=== PATIENT | female | born 1935 | race Caucasian/White ===

== ENCOUNTER 2023-06-11 04:35 | Inpatient (IN) | payer MEDICARE, BC ==
[~2023-06-11] VITALS: Ht 160 cm; Wt 61.3 kg
[2023-06-11] VITALS (13 sets, daily range): BP systolic 90–154; BP diastolic 49–93; PULSE 77–124; TEMP 96.7
[2023-06-11] MEDS ORDERED: ceFAZolin 2 G IV PRN (05:00)
[2023-06-11] MEDS ORDERED: Morphine 4 MG/ML VIAL IV PRN ×2 (05:00→17:15)
[2023-06-11] MEDS ORDERED: D5 1/2 NS 1,000 ML IV SCH (05:00)
[2023-06-11] MEDS ORDERED: Naloxone 0.4 MG/ML VIAL IV PRN ×2 (05:00→17:15)
[2023-06-11] MEDS ORDERED: traMADol 50 MG TAB PO PRN (05:00)
[2023-06-11] MEDS ORDERED: Promethazine 25 MG TAB PO PRN (05:15)
[2023-06-11] MEDS ORDERED: Promethazine 25 MG in NS 50 ML IV PRN (05:15)
--- NOTE | 2023-06-11 05:40 | NUR ---
Accepted in transfer from [facility]. Arrived via EMS.
[2023-06-11] MEDS ORDERED: EUTHYROX100 MCG PO (06:10)
[2023-06-11] MEDS ORDERED: COZAAR100 MG PO (06:11)
[2023-06-11] MEDS ORDERED: COREG 25MG25 MG/TAB PO (06:12)
[2023-06-11] MEDS ORDERED: PEPCID40 MG PO (06:12)
[2023-06-11] MEDS ORDERED: MELATIN 3 MG-11 TAB PO (06:12)
[2023-06-11] MEDS ORDERED: LASIX 40MG TABL40 MG PO (06:13)
[2023-06-11] MEDS ORDERED: LYRICA200 MG PO (06:13)
[2023-06-11] MEDS ORDERED: AZULFIDINE500 MG/TAB PO (06:15)
[2023-06-11] MEDS ORDERED: REQUIP3 MG PO (06:15)
[2023-06-11] MEDS ORDERED: ceFAZolin 2 G in Water For Injection,Sterile 20 ML IV PRN (06:15)
[2023-06-11] MEDS ORDERED: ASPIRIN 32325 MG/TAB PO (06:16)
[2023-06-11] MEDS ORDERED: CYMBALTA 60MG60 MG PO (06:16)
[2023-06-11] MEDS ORDERED: ANTACID500 M1 PO (06:21)
[2023-06-11] MEDS ORDERED: ANTACID 225 MG360 M1 PO (06:21)
[2023-06-11] MEDS ORDERED: LIQUIFILM TEARS15 ML OU (06:22)
[2023-06-11] MEDS ORDERED: IMODIUM A-D2 MG PO (06:35)
[2023-06-11] MEDS ORDERED: GERI-TUSSI100 MG/5 M PO (06:35)
[2023-06-11] MEDS ORDERED: NORCO 325 MG-51 TAB PO (06:36)
[2023-06-11] MEDS ORDERED: GOOD SENSE400 MG/5 M PO (06:36)
--- NOTE | 2023-06-11 06:45 | NUR ---
Pt recently arrived via EMS. Pt is confused and having complaints of pain to her right hip. Pt is very restless. She is confused, unable to answer questions appropriatley. Hospitalist aware that she is here per CAROLINE Gonzalez. Dr Sands just in to see pt. Pt does have Brant hose to left leg and SCDs on bilaterally. Placed pt on O2 at 2L per nc as she was on this coming via EMS. Report given to Hayde VELAZQUEZ
[2023-06-11 07:11] LABS: BASO % 0.1 % (0.0-2.0); EOS % 0.1 % (0.0-4.0); GRAN % 89.3 % (42.2-75.2); HEMOGLOBIN 11.3 g/dl (12.5-16.0); LYMPH # 0.5 K/mm3 (1.2-3.4); LYMPH % 6.2 % (20.0-51.0); MEAN CELL VOLUME 96 fl (80.0-100.0); MEAN CORPUSCULAR HEMOGLOBIN 31 pg (27-31); MEAN CORPUSCULAR HGB CONC 32 g/dl (33.0-37.0); MEAN PLATELET VOLUME 10.9 fl (7.4-10.4); MONO # 0.3 K/mm3 (0.1-0.6); MONO % 3.8 % (1.7-9.3); PLATELET COUNT 155 K/mm3 (130-400); RED BLOOD COUNT 3.62 M/mm3 (4.10-5.30)
[2023-06-11 07:17] LABS: HEMATOCRIT 34.9 % (37.0-47.0)
[2023-06-11 07:23] LABS: INR 1.2 (0.8-3.0); PROTHROMBIN TIME 13.3 SECONDS (9.7-12.8)
[2023-06-11 07:25] LABS: ALBUMIN 3.6 gm/dL (3.4-4.8); CALCIUM 10.3 mg/dL (8.4-10.2); CREATININE, serum 0.74 mg/dL (0.57-1.11); POTASSIUM 3.9 mmol/L (3.5-4.5); TOTAL PROTEIN 6.1 gm/dL (6.2-8.1)
[2023-06-11] MEDS ORDERED: MAPAP MULTI-SYM1 TA1 PO (07:57)
--- NOTE | 2023-06-11 08:00 | NUR ---
admission assessment completed to the best of this nurse's ability due to pt having some confusion. pt reports pain an 8/10 after morphine administered. pt placed in 3# bucks traction for comfort. chapman to dd w yellow urine output. teds and scds in place. pt on 2L nasal cannula, on room air at baseline. fluids infusing into right ac at 100ml/hr. fall precautions in place. pt denies needs at this time. call light in reach.
[2023-06-11] MEDS ORDERED: oxyCODONE 5 MG TAB PO PRN (09:15)
--- NOTE | 2023-06-11 11:29 | NUR ---
right AC INT positional and occluding frequently with movement. new IV placed by [place] student observed by instructor into left forearm.
[2023-06-11 11:34] LABS: COLLECTION METHOD CATHETER
[2023-06-11 12:30] LABS: PH 5.5 (5.0-8.5); URINE APPEARANCE Hazy (CLEAR/HAZY); URINE BLOOD TRACE-INTACT (NEGATIVE); URINE COLOR Yellow (YELLOW); URINE GLUCOSE Negative (NEGATIVE); URINE KETONE Negative (NEGATIVE); URINE NITRATE Negative (NEGATIVE); URINE PROTEIN(semi-quant) 1+ (NEGATIVE); URINE UROBILINOGEN 0.2 E.U/dL (0.2-1.0)
[2023-06-11 12:31] LABS: URINE BACTERIA Moderate /hpf (NONE SEEN)
[2023-06-11 12:33] LABS: MUCOUS Present (NOT PRESENT)
[2023-06-11] MEDS ORDERED: Albuterol/Ipratropium 3 MG-0.5 MG/3 ML Neb Soln IH PRN (12:45)
[2023-06-11] MEDS ORDERED: sulfaSALAzine 500 MG TAB PO SCH (13:00)
[2023-06-11] MEDS ORDERED: rOPINIRole 1 MG TAB PO SCH (14:00)
[2023-06-11] MEDS ORDERED: Midazolam 2 MG/2 ML VIAL ONE (14:16)
--- NOTE | 2023-06-11 14:27 | NUR ---
pt off floor for surgery
--- NOTE | 2023-06-11 14:40 | NUR ---
D: Initial visit: Music Writer stopped by room on rounds. Pt was resting and content with family in the room A: Pt doesn't have any needs right now. Family appreciated the visit. P: Music Writer informed pt and family that if they needed anything from the guide domestic tour area to let their nurse know. Music Writer will follow up as needed.
--- NOTE | 2023-06-11 15:28 | NUR ---
DUC Holloway followed up with son Kip [phone] to discuss discharge planning. Kip reported pt lives in [place] and her PCP is Dr. Blackwell. Kip reported he is unsure which pharmacy she uses and said she has had no difficulties affording medication in the past. Kip thought he had a document stating that he was the healthcare decision maker, but stated he is her only next of kin. Kip notified DUC Bejarano he would try to locate the document for the hospital. Kip reported pt uses a wheelchair and oxygen at [facility]. Kip reported [facility] assists pt with ADL and that he is her primary mode of transportation to and from appointments. Kip noted that Dr. Blackwell is able to go to [facility] to see pt.
[2023-06-11] MEDS ORDERED: NS 10 ML IV ONE (15:35)
[2023-06-11] MEDS ORDERED: Ondansetron 4 MG/2 ML VIAL ONE (15:35)
[2023-06-11] MEDS ORDERED: Lidocaine PF 2% (20 MG/ML) 5 ML VIAL ONE (15:35)
[2023-06-11] MEDS ORDERED: fentaNYL 50 MCG/ML 2 ML VIAL ONE (15:35)
[2023-06-11] MEDS ORDERED: dexAMETHasone 10 MG/ML VIAL ONE (15:35)
[2023-06-11] MEDS ORDERED: NS 100 ML IV ONE (16:01)
[2023-06-11] MEDS ORDERED: Phenylephrine 10 MG/ML VIAL ONE (16:02)
--- NOTE | 2023-06-11 16:21 | NUR ---
piece worker and SW Student, Amie, met with patient to discuss discharge planning. Patient reports she lives in [place]. PCP is Dr. Blackwell, patient did not know the pharmacy. Patient reports she has a cane and a walker. Patient reports it would be best to ask the remaining questions to her son, Kip, P# [phone]. SW Student spoke with Kip, see DUC Holloway's note. Discharge plan: return to [facility]
[2023-06-11] MEDS ORDERED: HYDROmorphone 2 MG/1 ML VIAL IV PRN (16:30)
[2023-06-11] MEDS ORDERED: hydrALAZINE 20 MG/ML 1 ML VIAL IV PRN (16:30)
[2023-06-11] MEDS ORDERED: Carvedilol 25 MG TAB PO SCH (17:00)
[2023-06-11] MEDS ORDERED: D5LR 1,000 ML IV SCH (17:15)
[2023-06-11] MEDS ORDERED: Ondansetron 4 MG/2 ML VIAL IV PRN (17:15)
[2023-06-11] MEDS ORDERED: Magnes Hydrox (MOM) 80 MG/ML 30 ML CUP PO PRN (17:15)
[2023-06-11] MEDS ORDERED: Carboxymethylcellulose PF Ophth 0.4 ML DROPPERETTE OP PRN (17:15)
[2023-06-11] MEDS ORDERED: Acetaminophen 500 MG TAB PO SCH (17:15)
[2023-06-11] MEDS ORDERED: Mag/Al Hydrox/Simeth Susp 30 ML CUP PO PRN (17:15)
[2023-06-11] MEDS ORDERED: Ketorolac 15 MG/ML VIAL IV SCH (17:15)
--- NOTE | 2023-06-11 20:00 | NUR ---
PT IS ALERT & LAYING IN BED, HAS SOME CONFUSION. VSS ON 4L/NC. ON TELE IN AFIB. PT DENYING PAIN OR N/V. X3 GAUZE & TEGARDERM TO RIGHT HIP CDI & ICE PACK IN PLACE. KRAMER TO DD WITH DARK YELLOW OUTPUT. INF INFUSING VIA PUMP TO LEFT FOREARM. PT TOLERATING WATER & CRACKERS. FALL PRECAUTIONS IN PLACE & CALL LIGHT IN REACH.
[2023-06-11] MEDS ORDERED: Sennosides/Docusate 8.6-50 MG TAB PO SCH (21:00)
[2023-06-11] MEDS ORDERED: Pregabalin 50 MG CAP PO SCH (21:00)
[2023-06-11] MEDS ORDERED: Famotidine 20 MG TAB PO SCH (21:00)
[2023-06-11] MEDS ORDERED: Melatonin 3 MG TAB PO SCH (21:00)
[2023-06-12] VITALS (12 sets, daily range): BP systolic 90–136; BP diastolic 48–74; PULSE 78–103; TEMP 97.4–98.2
--- NOTE | 2023-06-12 05:11 | NUR ---
PT RESTING IN BED WITH UNLABORED RESP. PAIN WAS CONTROLLED THROUGHOUT THE NIGHT WITH PRN MORPHINE & OXYCODONE. CALL LIGHT IN REACH & FALL PRECAUTIONS IN PLACE
[2023-06-12 07:11] LABS: HEMATOCRIT 25.9 % (37.0-47.0); HEMOGLOBIN 8.3 g/dl (12.5-16.0)
[2023-06-12 07:12] LABS: INR 1.3 (0.8-3.0); PROTHROMBIN TIME 13.9 SECONDS (9.7-12.8)
[2023-06-12 07:22] LABS: CALCIUM 9.9 mg/dL (8.4-10.2); CREATININE, serum 0.79 mg/dL (0.57-1.11); POTASSIUM 3.9 mmol/L (3.5-4.5)
--- NOTE | 2023-06-12 08:12 | NUR ---
Pt doing okay this morning. She reports that she was not able to get any sleep last night. Pt is oriented as far as where she is and why she is here. She is able to recall the events that happened during her fall. Pt is poor historian. Pt having complaints that her right leg hurts. Assisted her to sitting up in bed and then transferring over to the chair. Pt did well with one assist. Ice pack to right hip. Discussed breakfast and then ordered for her. Chair alarm on and call light within reach
[2023-06-12] MEDS ORDERED: DULoxetine 60 MG CAP PO SCH (09:00)
[2023-06-12] MEDS ORDERED: Calcium Carbonate 500 MG TAB PO SCH (09:00)
[2023-06-12] MEDS ORDERED: Ascorbic Acid 500 MG TAB PO SCH (09:00)
[2023-06-12] MEDS ORDERED: Multivitamin TAB PO SCH (12:00)
--- NOTE | 2023-06-12 14:30 | NUR ---
Pt assisted back to bed with PT. Pt does have a hard time following the non weight bearing instructions. Pt appears lethargic. Soon after getting pt back to bed she did go to sleep. Bed alarm on, will continue to monitor VSS
--- NOTE | 2023-06-12 14:59 | NUR ---
PT resting with eyes closed, even non labored breathing, did not use IS
--- NOTE | 2023-06-12 15:16 | NUR ---
DUC was notified [facility] can accept patient back as a skilled patient if she needs those services but is normally LTC. DUC Juárez faxed updates to [facility]. Discharge plan: Return to [facility]
--- NOTE | 2023-06-12 15:52 | NUR ---
Notified PRANAV Waller of low urine output
[2023-06-12] MEDS ORDERED: NS 1,000 ML IV SCH (16:00)
[2023-06-12 19:12] LABS: HEMATOCRIT 24.4 % (37.0-47.0); HEMOGLOBIN 7.8 g/dl (12.5-16.0)
--- NOTE | 2023-06-12 19:14 | NUR ---
IV fluids started this afternoon per order. Continue to reposition pt in bed throughout the day. Pt at times complains of pain, but appears to be resting comfortably. Pt goes in and out of confusion as far as where she is and why she is here. Pt is alert and oriented to present time at this time
[2023-06-12] MEDS ORDERED: Pregabalin 50 MG CAP PO SCH (21:00)
--- NOTE | 2023-06-12 22:54 | NUR ---
patient lying in bed alert and oriented x2, reoriented to time. pt denies chest pain and shortness of breath. IV in LF is patent, site is clean dry and intact with NS running at 75 ml/hr. incision sites x3 on right hip are clean dry and intact with gauze dressing. pt has no further needs questions or concerns at this time. fall precautions in place, call light within reach. will continue to monitor.
[2023-06-13] VITALS (19 sets, daily range): BP systolic 107–152; BP diastolic 46–75; PULSE 93–109; TEMP 97.4–98.6
[2023-06-13 07:01] LABS: BASO % 0.1 % (0.0-2.0); EOS # 0.5 K/mm3 (0.0-0.7); GRAN # 6.4 K/mm3 (1.4-6.5); GRAN % 69.3 % (42.2-75.2); LYMPH # 1.6 K/mm3 (1.2-3.4); MEAN CELL VOLUME 98 fl (80.0-100.0); MEAN CORPUSCULAR HGB CONC 32 g/dl (33.0-37.0); MONO # 0.8 K/mm3 (0.1-0.6); MONO % 8.2 % (1.7-9.3); PLATELET COUNT 141 K/mm3 (130-400); RED BLOOD COUNT 2.28 M/mm3 (4.10-5.30); REDCELL DISTRIBUTION WIDTH-CV 15.3 % (11.5-14.5)
[2023-06-13 07:02] LABS: INR 1.1 (0.8-3.0); PROTHROMBIN TIME 12.3 SECONDS (9.7-12.8)
[2023-06-13 07:03] LABS: HEMATOCRIT 22.4 % (37.0-47.0); HEMOGLOBIN 7.2 g/dl (12.5-16.0); MEAN CORPUSCULAR HEMOGLOBIN 32 pg (27-31)
[2023-06-13 07:08] LABS: ALBUMIN 2.7 gm/dL (3.4-4.8); BILIRUBIN,TOTAL 0.4 mg/dL (0.2-1.2); CALCIUM 9.6 mg/dL (8.4-10.2); CREATININE, serum 0.7 mg/dL (0.57-1.11); POTASSIUM 3.7 mmol/L (3.5-4.5); TOTAL PROTEIN 5.2 gm/dL (6.2-8.1)
--- NOTE | 2023-06-13 09:25 | NUR ---
pt alert and orientedx2. vss and tele in place. pt tolerated breakfast. transferred to recliner with therapy. INT accidently dislodged during transfer. pt rates pain an 8/10, norco given per emar. teds to ble. right hip incisions are cdi. pt on 2l nasal cannula. fall precautions in place. pt denies needs at this time. call light in reach.
[2023-06-13] MEDS ORDERED: Ferrous Sulfate 325 MG TAB PO SCH (12:00)
--- NOTE | 2023-06-13 12:00 | NUR ---
chapman discontinued without difficulty.
--- NOTE | 2023-06-13 13:18 | NUR ---
harness worker met with patient and her daughter in law. Daughter in law expressed they were informed they would need to transport patient to the SNF tomorrow. DUC will follow up with [facility]. DUC contacted [facility] and provided an update that patient is looking at discharge tomorrow. [facility] expressed they should be able to transport the patient home but will update the high school social studies teacher tomorrow. Discharge plan: SNF- [facility]
--- NOTE | 2023-06-13 14:15 | NUR ---
Initial visit; Patient unable to sit up very straight but is coloring. Clam Treader complimented her on keeping busy and mentioned how she likes to color and how it's good for the mind to plan what colors to use and where. Savita said she hadn't colored since she was a kid but enjoys it. Clam Treader offered prayer for Savita's health and she prayed for Clam Treader and herself. Clam Treader wished her well and offered God's blessings.
--- NOTE | 2023-06-13 15:10 | NUR ---
transfusion started, reviewed transfusion reactions with pt and pt states she understand. vss.
--- NOTE | 2023-06-13 16:23 | NUR ---
Social work student Amie faxed clinical updates to [facility].
--- NOTE | 2023-06-13 16:49 | NUR ---
DUC provided an update to patient's son, Kip, P# [phone]. DUC expressed [facility] reported earlier todday they are able to transport patient home. DUC will contact Kip tomorrow as well. Discharge plan: [facility]- SNF
--- NOTE | 2023-06-13 21:40 | NUR ---
PT IN BED, ORIENTED TO SELF. HS MEDS GIVEN, TAKES WHOLE WITHOUT DIFFICULTY. OXYCODONE 5MG PO GIVEN FOR RT HIP PAIN, DRSG'S WITH SHADOWING, ICE PACK REPLACED. VOIDING PER BEDPAN OR BSC. HAS INT TO LAC, FLUSHES EASILY. BED ALARM ON FOR SAFETY.
[2023-06-14] VITALS (8 sets, daily range): BP systolic 140–176; BP diastolic 70–82; PULSE 82–94; TEMP 97.8–98.3
[2023-06-14 01:12] LABS: HEMATOCRIT 27.5 % (37.0-47.0); HEMOGLOBIN 9.3 g/dl (12.5-16.0)
--- NOTE | 2023-06-14 03:42 | NUR ---
PT MOANING IN PAIN, OXYCODONE 5MG PO GIVEN.
[2023-06-14 05:45] LABS: BASO % 0.4 % (0.0-2.0); EOS # 0.5 K/mm3 (0.0-0.7); EOS % 5.6 % (0.0-4.0); GRAN # 5.7 K/mm3 (1.4-6.5); GRAN % 68.9 % (42.2-75.2); HEMATOCRIT 26.8 % (37.0-47.0); LYMPH # 1.2 K/mm3 (1.2-3.4); MEAN CELL VOLUME 92 fl (80.0-100.0); MEAN CORPUSCULAR HEMOGLOBIN 31 pg (27-31); MEAN CORPUSCULAR HGB CONC 34 g/dl (33.0-37.0); MEAN PLATELET VOLUME 10.6 fl (7.4-10.4); MONO # 0.8 K/mm3 (0.1-0.6); MONO % 9.3 % (1.7-9.3); PLATELET COUNT 150 K/mm3 (130-400); REDCELL DISTRIBUTION WIDTH-CV 16.3 % (11.5-14.5)
[2023-06-14 05:47] LABS: INR 1.1 (0.8-3.0); PROTHROMBIN TIME 12.1 SECONDS (9.7-12.8)
[2023-06-14 06:01] LABS: ALBUMIN 2.7 gm/dL (3.4-4.8); BILIRUBIN,TOTAL 0.7 mg/dL (0.2-1.2); CREATININE, serum 0.62 mg/dL (0.57-1.11); POTASSIUM 4.2 mmol/L (3.5-4.5); TOTAL PROTEIN 5.3 gm/dL (6.2-8.1)
[2023-06-14] MEDS ORDERED: Carvedilol 25 MG TAB PO SCH (09:30)
[2023-06-14] MEDS ORDERED: COREG 25MG25 MG/TAB PO (12:16)
[2023-06-14] MEDS ORDERED: ASPIRIN 32325 MG/TAB PO (12:18)
[2023-06-14] MEDS ORDERED: CALCIUM 600600 MG PO (12:19)
[2023-06-14] MEDS ORDERED: ROXICODONE 55 MG/TAB PO (12:21)
[2023-06-14] MEDS ORDERED: VITAMIN C500 MG PO (12:21)
[2023-06-14] MEDS ORDERED: CIPRO 500MG TA500 MG PO (12:44)
[2023-06-14] MEDS ORDERED: FERROUSAL325 MG PO (12:45)
--- NOTE | 2023-06-14 12:48 | NUR ---
Report called to Diane Lugo in [place]
[2023-06-14] MEDS ORDERED: MACROBID 1100 MG/CAP PO (12:56)
--- NOTE | 2023-06-14 13:20 | NUR ---
[facility] transportation here to get pt
--- NOTE | 2023-06-14 16:24 | NUR ---
edge worker was notified patient is ready for discharge. DUC contacted [facility] and confirmed they are able to transport patient at 1 pm. SW notified patient's son, patient will discharge at 1 pm. DUC reviewed the important message from Medicare with patient's son. He understood. DUC met with the patient and reviewed the important message from Medicare. Patient reports she understood, signed the form. DUC made a copy, placed original in the chart and provided a copy to the patient. DUC faxed clinical updates and discharge orders to [facility]. Discharge plan: [facility]
== END 2023-06-14 14:33 | DRG 481 ==
LOC: SURG 04:35
PROVIDERS: Internal Medicine; Physician Assistant; ADMIT Orthopaedic Surgery
PROC: 0QS606Z Reposition Right Upper Femur with Intramedullary Internal Fixation Device, Open Approach (ICD-10-PCS; principal; 2023-06-11 18:00)
PROC: 30233N1 Transfusion of Nonautologous Red Blood Cells into Peripheral Vein, Percutaneous Approach (ICD-10-PCS; 2023-06-13)
DX: S72.141A Displaced intertrochanteric fracture of right femur, initial encounter for closed fracture (principal); J96.11 Chronic respiratory failure with hypoxia; I48.91 Unspecified atrial fibrillation; J44.9 Chronic obstructive pulmonary disease, unspecified; K21.9 Gastro-esophageal reflux disease without esophagitis; Z66 Do not resuscitate; K52.9 Noninfective gastroenteritis and colitis, unspecified; E03.9 Hypothyroidism, unspecified; G25.81 Restless legs syndrome; G47.00 Insomnia, unspecified; M79.7 Fibromyalgia; I11.0 Hypertensive heart disease with heart failure; I50.9 Heart failure, unspecified; W06.XXXA Fall from bed, initial encounter; R74.01 Elevation of levels of liver transaminase levels; B96.20 Unspecified Escherichia coli [E. coli] as the cause of diseases classified elsewhere; R82.90 Unspecified abnormal findings in urine; D64.89 Other specified anemias; F32.A Depression, unspecified; I45.10 Unspecified right bundle-branch block; Y93.89 Activity, other specified; Y92.122 Bedroom in nursing home as the place of occurrence of the external cause; Z86.73 Personal history of transient ischemic attack (TIA), and cerebral infarction without residual deficits; Z79.890 Hormone replacement therapy; Z79.82 Long term (current) use of aspirin; Z79.899 Other long term (current) drug therapy; Z88.1 Allergy status to other antibiotic agents; Z88.2 Allergy status to sulfonamides; Z88.8 Allergy status to other drugs, medicaments and biological substances; Z99.81 Dependence on supplemental oxygen; Z23 Encounter for immunization
CPT/HCPCS: A9284; C1713; J0690; J0737; J1100; J1170; J2250; J2270; J2371; J2405; J2704; J3010; J7030; J7121; P9016